=== PATIENT | female | born 1975 | race Two or more races ===

== ENCOUNTER 2018-05-26 23:54 | Emergency (ER) | payer MEDICAID ==
[~2018-05-26] VITALS: Ht 160 cm; Wt 61.2 kg
[~2018-05-26 23:54] MED LIST: FERR325T50 PO
[2018-05-27] VITALS: BP 125/81
[2018-05-27] MEDS ORDERED: cefTRIAXone SOD 1,000 MG VL IM ONE (01:30)
[2018-05-27 01:51] LABS: Urine Bacteria FEW /hpf (None Seen); Urine Blood 2+ /uL (Negative); Urine Mucus FEW (None Seen); Urine Specific Gravity 1.011 (1.001-1.035); Urine WBC 127 /hpf (0 - 5)
== END 2018-05-27 02:25 | disposition home or self-care (01) ==
LOC: ER 23:56
DX: N39.0 Urinary tract infection, site not specified (principal)
CPT/HCPCS: 81001; 96372; 99283; J0696